=== PATIENT | female | born 1955 | race Caucasian/White ===

== ENCOUNTER 2021-01-28 20:49 | Emergency (ER) | payer MEDICARE ==
[~2021-01-28] VITALS: Ht 165.1 cm; Wt 74.8 kg
[2021-01-28] MEDS ORDERED: ACETAMINOPHEN 325 MG TAB PO ONE (21:00)
[2021-01-28 22:51] VITALS: BP 112/61
== END 2021-01-28 22:35 | disposition home or self-care (01) ==
LOC: ER 20:55
DX: R50.9 Fever, unspecified (principal); J40 Bronchitis, not specified as acute or chronic; R05.9 Cough, unspecified
CPT/HCPCS: 71045; 87400; 93005; 99283; U0002